=== PATIENT | female | born 1985 | race Caucasian/White ===

== ENCOUNTER 2017-10-16 13:45 | Emergency (ER) | payer OTHER | END 2017-10-16 14:34 | disposition home or self-care (01) | LOC: E/R 13:45 | DX: O99.519 Diseases of the respiratory system complicating pregnancy, unspecified trimester (principal); J06.9 Acute upper respiratory infection, unspecified; J34.89 Other specified disorders of nose and nasal sinuses; Z3A.00 Weeks of gestation of pregnancy not specified | CPT/HCPCS: 99283 ==

== ENCOUNTER 2017-10-18 17:36 | Emergency (ER) | payer OTHER ==
[2017-10-18] MEDS: SOD CHLORIDE 0.9% 1,000 ML IV (21:22)
[2017-10-18] MEDS: ACETAMINOPHEN 325 MG TAB PO (21:47)
[2017-10-18] MEDS: ONDANSETRON 4 MG INJ IV (21:48)
[2017-10-18 22:33] LABS: ADD MAN DIFF? NO
[2017-10-18 22:35] LABS: BASOPHILS % 0.2 % (0.0-2.0); EOSINOPHILS # 0.1 10^3/ul (0.0-0.5); EOSINOPHILS % 1.1 % (0.0-7.0); HEMATOCRIT 34.1 % (37.0-47.0); HEMOGLOBIN 12.1 g/dl (12.0-16.0); LYMPHOCYTES # 0.9 10^3/ul (0.8-2.9); LYMPHOCYTES % 9.9 % (15.0-51.0); MEAN CORPUSCULAR HEMOGLOBIN 30.9 pg (29.0-33.0); MEAN CORPUSCULAR HGB CONC 35.5 g/dl (32.0-37.0); MEAN CORPUSCULAR VOLUME 87.2 fl (82.0-101.0); MEAN PLATELET VOLUME 10.5 fl (7.4-10.4); MONOCYTE # 0.5 10^3/ul (0.3-0.9); MONOCYTES % 5.7 % (0.0-11.0); NEUTROPHIL # 7.5 10^3/ul (1.6-7.5); NEUTROPHILS % 82.7 % (39.0-77.0); PLATELET COUNT 154 10^3/UL (140-415); RED BLOOD COUNT 3.91 10^6/ul (4.20-5.40); RED CELL DISTRIBUTION WIDTH 12.1 % (11.5-14.5)
[2017-10-18 22:35] LABS: WHITE BLOOD COUNT 9.1 10^3/ul (4.8-10.8)
[2017-10-18 22:54] LABS: ALANINE AMINOTRANSFERASE 43 IU/L (13-69); ALBUMIN 4.1 g/dl (3.3-4.9); ALBUMIN/GLOBULIN RATIO 1.17; ALKALINE PHOSPHATASE 64 IU/L (42-121); ANION GAP 18 (8-16); ASPARTATE AMINO TRANSFERASE 33 IU/L (15-46); BILIRUBIN,INDIRECT 0.3 mg/dl (0-1.1); BILIRUBIN,TOTAL 0.3 mg/dl (0.2-1.3); BLOOD UREA NITROGEN 12 mg/dl (7-20); CALCIUM 9.2 mg/dl (8.4-10.2); CARBON DIOXIDE 24 mmol/L (21-31); CHLORIDE 103 mmol/L (97-110); CREATININE 0.63 mg/dl (0.44-1.00); GLUCOSE 100 mg/dl (70-220); POTASSIUM 3.9 mmol/L (3.5-5.1); SODIUM 141 mmol/L (135-144); TOTAL PROTEIN 7.6 g/dl (6.1-8.1)
== END 2017-10-18 23:59 | disposition home or self-care (01) ==
LOC: FTE 17:36
DX: O99.511 Diseases of the respiratory system complicating pregnancy, first trimester (principal); J00 Acute nasopharyngitis [common cold]; Z3A.11 11 weeks gestation of pregnancy
CPT/HCPCS: 76801; 80053; 84702; 85025; 86900; 86901; 96374; 99285-25

== ENCOUNTER 2017-10-20 12:41 | Emergency (ER) | payer OTHER | END 2017-10-20 12:50 | disposition home or self-care (01) | LOC: E/R 12:50 → FTE 12:41 | DX: J06.9 Acute upper respiratory infection, unspecified (principal) | CPT/HCPCS: 99283; Z7502 ==

== ENCOUNTER 2017-10-24 09:14 | Emergency (ER) | payer OTHER ==
[2017-10-24] MEDS: METOCLOPRAMIDE 10 MG INJ IV (10:48)
[2017-10-24 10:52] LABS: ADD MAN DIFF? NO
[2017-10-24 10:54] LABS: BASOPHILS % 0.2 % (0.0-2.0); EOSINOPHILS # 0.1 10^3/ul (0.0-0.5); EOSINOPHILS % 1.4 % (0.0-7.0); HEMATOCRIT 38.3 % (37.0-47.0); HEMOGLOBIN 13.4 g/dl (12.0-16.0); LYMPHOCYTES # 1.6 10^3/ul (0.8-2.9); MEAN CORPUSCULAR HEMOGLOBIN 30.7 pg (29.0-33.0); MEAN CORPUSCULAR VOLUME 87.8 fl (82.0-101.0); MEAN PLATELET VOLUME 9.9 fl (7.4-10.4); MONOCYTE # 0.5 10^3/ul (0.3-0.9); MONOCYTES % 5.6 % (0.0-11.0); NEUTROPHIL # 6.3 10^3/ul (1.6-7.5); NEUTROPHILS % 73.5 % (39.0-77.0); PLATELET COUNT 193 10^3/UL (140-415); RED BLOOD COUNT 4.36 10^6/ul (4.20-5.40); RED CELL DISTRIBUTION WIDTH 11.6 % (11.5-14.5)
[2017-10-24 10:54] LABS: WHITE BLOOD COUNT 8.6 10^3/ul (4.8-10.8)
[2017-10-24] MEDS: ONDANSETRON 4 MG INJ IV (10:55)
[2017-10-24 11:03] LABS: ADD UMIC YES; UR ASCORBIC ACID 40 mg/dL (NEGATIVE); UR BILIRUBIN (Dip) NEGATIVE (NEGATIVE); UR BLOOD (Dip) NEGATIVE (NEGATIVE); UR CLARITY SLIGHTLY CLOUDY (CLEAR); UR COLOR AMBER (YELLOW); UR GLUCOSE (Dip) NEGATIVE (NEGATIVE); UR KETONES (Dip) 2+ mg/dL (NEGATIVE); UR LEUKOCYTE ESTERASE (Dip) 2+ Leu/ul (NEGATIVE); UR MUCUS MODERATE /HPF (NONE SEEN); UR NITRITE (Dip) NEGATIVE (NEGATIVE); UR RBC 2 /HPF (0-5); UR SPECIFIC GRAVITY (Dip) 1.033 (1.003-1.030); UR SQUAMOUS EPITHELIAL CELL MODERATE /HPF (FEW); UR TOTAL PROTEIN (Dip) 2+ mg/dl (NEGATIVE); UR UROBILINOGEN (Dip) 2+ mg/dL (NEGATIVE); UR WBC 14 /HPF (0-5)
[2017-10-24 11:13] LABS: ALANINE AMINOTRANSFERASE 36 IU/L (13-69); ALBUMIN 4.4 g/dl (3.3-4.9); ALKALINE PHOSPHATASE 80 IU/L (42-121); ANION GAP 18 (8-16); ASPARTATE AMINO TRANSFERASE 31 IU/L (15-46); BILIRUBIN,INDIRECT 0.3 mg/dl (0-1.1); BILIRUBIN,TOTAL 0.3 mg/dl (0.2-1.3); BLOOD UREA NITROGEN 11 mg/dl (7-20); CALCIUM 9.7 mg/dl (8.4-10.2); CARBON DIOXIDE 26 mmol/L (21-31); CHLORIDE 104 mmol/L (97-110); CREATININE 0.66 mg/dl (0.44-1.00); GLUCOSE 99 mg/dl (70-220); LIPASE 56 U/L (23-300); POTASSIUM 3.9 mmol/L (3.5-5.1); SODIUM 144 mmol/L (135-144); TOTAL PROTEIN 8.4 g/dl (6.1-8.1)
[2017-10-24] MEDS: CEPHALEXIN 500 MG CAP PO (12:02)
== END 2017-10-24 12:06 | disposition home or self-care (01) ==
LOC: FTE 09:14
DX: O21.9 Vomiting of pregnancy, unspecified (principal); Z3A.11 11 weeks gestation of pregnancy
CPT/HCPCS: 36415; 80053; 81001; 83690; 85025; 96374; 96375; 99284-25

== ENCOUNTER 2017-11-25 22:30 | Emergency (ER) | payer OTHER ==
[2017-11-26] MEDS: SOD CHLORIDE 0.9% 1,000 ML IV (01:34)
[2017-11-26 01:40] LABS: ADD UMIC YES; UR ASCORBIC ACID NEGATIVE (NEGATIVE); UR BACTERIA FEW /HPF (NONE SEEN); UR BILIRUBIN (Dip) NEGATIVE (NEGATIVE); UR BLOOD (Dip) NEGATIVE (NEGATIVE); UR CLARITY CLOUDY (CLEAR); UR COLOR YELLOW (YELLOW); UR GLUCOSE (Dip) NEGATIVE (NEGATIVE); UR KETONES (Dip) 1+ mg/dL (NEGATIVE); UR LEUKOCYTE ESTERASE (Dip) 3+ Leu/ul (NEGATIVE); UR MUCUS FEW /HPF (NONE SEEN); UR NITRITE (Dip) NEGATIVE (NEGATIVE); UR RBC 4 /HPF (0-5); UR SPECIFIC GRAVITY (Dip) 1.016 (1.003-1.030); UR SQUAMOUS EPITHELIAL CELL MODERATE /HPF (FEW); UR TOTAL PROTEIN (Dip) NEGATIVE (NEGATIVE); UR UROBILINOGEN (Dip) 1+ mg/dL (NEGATIVE); UR WBC 41 /HPF (0-5)
[2017-11-26 02:27] LABS: ADD MAN DIFF? NO
[2017-11-26 02:31] LABS: BASOPHILS % 0.5 % (0.0-2.0); EOSINOPHILS # 0.1 10^3/ul (0.0-0.5); EOSINOPHILS % 1.6 % (0.0-7.0); HEMATOCRIT 36.2 % (37.0-47.0); HEMOGLOBIN 12.8 g/dl (12.0-16.0); LYMPHOCYTES # 1.8 10^3/ul (0.8-2.9); LYMPHOCYTES % 23.3 % (15.0-51.0); MEAN CORPUSCULAR HEMOGLOBIN 31.4 pg (29.0-33.0); MEAN CORPUSCULAR HGB CONC 35.4 g/dl (32.0-37.0); MEAN CORPUSCULAR VOLUME 88.9 fl (82.0-101.0); MEAN PLATELET VOLUME 11.2 fl (7.4-10.4); MONOCYTE # 0.5 10^3/ul (0.3-0.9); MONOCYTES % 6.2 % (0.0-11.0); NEUTROPHIL # 5.3 10^3/ul (1.6-7.5); PLATELET COUNT 177 10^3/UL (140-415); RED BLOOD COUNT 4.07 10^6/ul (4.20-5.40); RED CELL DISTRIBUTION WIDTH 12.7 % (11.5-14.5)
[2017-11-26 02:31] LABS: WHITE BLOOD COUNT 7.7 10^3/ul (4.8-10.8)
[2017-11-26 02:50] LABS: ALANINE AMINOTRANSFERASE 43 IU/L (13-69); ALBUMIN 4.1 g/dl (3.3-4.9); ALBUMIN/GLOBULIN RATIO 1.13; ALKALINE PHOSPHATASE 57 IU/L (42-121); ANION GAP 16 (8-16); ASPARTATE AMINO TRANSFERASE 36 IU/L (15-46); BILIRUBIN,INDIRECT 0.1 mg/dl (0-1.1); BILIRUBIN,TOTAL 0.1 mg/dl (0.2-1.3); BLOOD UREA NITROGEN 9 mg/dl (7-20); CALCIUM 9.4 mg/dl (8.4-10.2); CARBON DIOXIDE 23 mmol/L (21-31); CHLORIDE 106 mmol/L (97-110); CREATININE 0.64 mg/dl (0.44-1.00); GLUCOSE 97 mg/dl (70-220); POTASSIUM 3.8 mmol/L (3.5-5.1); SODIUM 141 mmol/L (135-144); TOTAL PROTEIN 7.7 g/dl (6.1-8.1)
[2017-11-26] MEDS: CEFTRIAXONE 1 GM/50 ML (PMX) 50 ML IVPB (03:25)
== END 2017-11-26 04:30 | disposition home or self-care (01) ==
LOC: FTE 22:30
DX: O02.1 Missed abortion (principal); O23.02 Infections of kidney in pregnancy, second trimester; Z3A.15 15 weeks gestation of pregnancy
CPT/HCPCS: 36415; 76805; 80053; 81001; 84702; 85025; 96374; 99285-25

== ENCOUNTER 2017-11-26 11:04 | Inpatient (IN) | payer OTHER ==
[2017-11-26] MEDS ORDERED: MISOPROSTOL 200 MCG TAB PR (13:00)
[2017-11-26] MEDS ORDERED: LIDOCAINE 1% (MPF) 30 ML INJ INJ (13:00)
[2017-11-26] MEDS ORDERED: METHYLERGONOVINE 0.2 MG INJ IM (13:00)
[2017-11-26] MEDS ORDERED: CARBOPROST 250 MCG INJ IM (13:00)
[2017-11-26] MEDS ORDERED: BUTORPHANOL 2 MG INJ IV ×2 (13:00)
[2017-11-26] MEDS ORDERED: IBUPROFEN 600 MG TAB PO (13:00)
[2017-11-26] MEDS ORDERED: OXYTOCIN 30 UNITS/LR 500 ML IV ×3 (13:00)
[2017-11-26] MEDS ORDERED: HYDROCODONE/APAP (5/325) TAB PO (13:00)
[2017-11-26] MEDS ORDERED: AMPICILLIN 2 GM/NS (PMX) 100 ML IV (13:00)
[2017-11-26 14:18] LABS: ADD MAN DIFF? NO
[2017-11-26 14:22] LABS: WHITE BLOOD COUNT 8.4 10^3/ul (4.8-10.8)
[2017-11-26 14:22] LABS: BASOPHILS % 0.4 % (0.0-2.0); EOSINOPHILS # 0.1 10^3/ul (0.0-0.5); EOSINOPHILS % 0.7 % (0.0-7.0); HEMATOCRIT 36.1 % (37.0-47.0); HEMOGLOBIN 12.5 g/dl (12.0-16.0); LYMPHOCYTES # 1.6 10^3/ul (0.8-2.9); LYMPHOCYTES % 18.5 % (15.0-51.0); MEAN CORPUSCULAR HEMOGLOBIN 31.2 pg (29.0-33.0); MEAN CORPUSCULAR HGB CONC 34.6 g/dl (32.0-37.0); MEAN PLATELET VOLUME 10.9 fl (7.4-10.4); MONOCYTE # 0.6 10^3/ul (0.3-0.9); MONOCYTES % 6.7 % (0.0-11.0); NEUTROPHIL # 6.2 10^3/ul (1.6-7.5); NEUTROPHILS % 73.2 % (39.0-77.0); PLATELET COUNT 180 10^3/UL (140-415); RED BLOOD COUNT 4.01 10^6/ul (4.20-5.40); RED CELL DISTRIBUTION WIDTH 12.6 % (11.5-14.5)
[2017-11-26 14:42] LABS: INR 1.12; PROTIME 14.6 Sec (11.9-14.9); PT RATIO 1.1
[2017-11-26 14:43] LABS: PARTIAL THROMBOPLASTIN TIME 29.9 Sec (25.0-35.0)
[2017-11-26 15:09] LABS: HEPATITIS B SURFACE ANTIGEN NEGATIVE (NEGATIVE)
[2017-11-26] MEDS: DINOPROSTONE 20 MG VAG SUPP VAG ×2 (15:10→20:34)
[2017-11-26] MEDS: LACTATED RINGER'S 1,000 ML IV ×3 (15:44→22:31)
[2017-11-26] MEDS: ONDANSETRON 4 MG INJ IV (15:47)
[2017-11-26] MEDS ORDERED: AMPICILLIN 1 GM/NS (PMX) 50 ML IV (17:00)
[2017-11-26] MEDS ORDERED: FENTAnyl 2MCG/ML-ROPIV 0.2% 100 ML (19:12)
[2017-11-26] MEDS ORDERED: DIPHENHYDRAMINE 50 MG INJ IV (20:00)
[2017-11-26] MEDS ORDERED: NALOXONE (0.4 MG/ML) INJ IV (20:00)
[2017-11-26] MEDS ORDERED: ONDANSETRON 4 MG INJ IV (20:00)
[2017-11-26] MEDS ORDERED: EPHEDrine SULFATE 50 MG/5 ML SYG IV (20:00)
[2017-11-26] MEDS ORDERED: FENTAnyl 2MCG/ML-ROPIV 0.2% 100 ML BAG EPI (20:00)
[2017-11-26 22:02] LABS: ADD UMIC YES; UR ASCORBIC ACID NEGATIVE (NEGATIVE); UR BILIRUBIN (Dip) NEGATIVE (NEGATIVE); UR BLOOD (Dip) NEGATIVE (NEGATIVE); UR CLARITY CLEAR (CLEAR); UR COLOR YELLOW (YELLOW); UR GLUCOSE (Dip) NEGATIVE (NEGATIVE); UR KETONES (Dip) 2+ mg/dL (NEGATIVE); UR LEUKOCYTE ESTERASE (Dip) NEGATIVE Leu/ul (NEGATIVE); UR MUCUS FEW /HPF (NONE SEEN); UR NITRITE (Dip) NEGATIVE (NEGATIVE); UR RBC 4 /HPF (0-5); UR SPECIFIC GRAVITY (Dip) 1.028 (1.003-1.030); UR SQUAMOUS EPITHELIAL CELL FEW /HPF (FEW); UR TOTAL PROTEIN (Dip) 1+ mg/dl (NEGATIVE); UR UROBILINOGEN (Dip) 1+ mg/dL (NEGATIVE); UR WBC 1 /HPF (0-5)
[2017-11-26 22:18] LABS: RAPID PLASMA REAGIN NONREACTIVE (NR)
[2017-11-27] MEDS: DINOPROSTONE 20 MG VAG SUPP VAG (01:00)
[2017-11-27] MEDS: MISOPROSTOL 25 MCG CAPSULE PO (03:11)
[2017-11-27] MEDS ORDERED: LIDOCAINE 1.5%/EPI MPF (SDV) 30 ML VIAL (04:42)
[2017-11-27] MEDS ORDERED: CEFAZOLIN 1 GM INJ (04:48)
[2017-11-27] MEDS ORDERED: MEPERIDINE 25 MG INJ IV (06:30)
[2017-11-27] MEDS ORDERED: OXYCODONE/ACETAMINOPHEN (5/325) TAB PO ×2 (06:30)
[2017-11-27] MEDS ORDERED: MIDAZOLAM 1 MG/ML 2 ML INJ IV (06:30)
[2017-11-27] MEDS ORDERED: FENTAnyl 50 MCG/ML VIAL IV ×3 (06:30)
[2017-11-27] MEDS ORDERED: ONDANSETRON 4 MG INJ IV (06:30)
[2017-11-27] MEDS ORDERED: DIPHENHYDRAMINE 50 MG INJ IV (06:30)
[2017-11-27] MEDS ORDERED: LANOLIN 7 GM TUBE TOP (08:30)
[2017-11-27] MEDS ORDERED: OXYCODONE/ASPIRIN (4.88/325) TAB PO ×2 (08:30)
[2017-11-27] MEDS ORDERED: ZOLPIDEM 5 MG TAB PO (08:30)
[2017-11-27] MEDS ORDERED: BENZOCAINE 20% 56 ML SPRAY TOP (08:30)
[2017-11-27] MEDS ORDERED: MISOPROSTOL 200 MCG TAB PR (08:30)
[2017-11-27] MEDS ORDERED: OXYTOCIN 30 UNITS/LR 500 ML IV (08:30)
[2017-11-27] MEDS ORDERED: CARBOPROST 250 MCG INJ IM (08:30)
[2017-11-27] MEDS ORDERED: METHYLERGONOVINE 0.2 MG INJ IM (08:30)
[2017-11-27] MEDS: WITCH HAZEL/GLYCERIN PAD PR (08:51)
[2017-11-27] MEDS: SENNA/DOCUSATE NA (8.6MG/50MG) TAB PO (08:51)
[2017-11-27] MEDS: IBUPROFEN 600 MG TAB PO ×2 (11:33→17:32)
[2017-11-27] MEDS: CEPHALEXIN 500 MG CAP PO (18:46)
[2017-11-27] MEDS: DOXYCYCLINE 100 MG TAB PO ×3 (22:00→23:00)
[2017-11-28] MEDS: CEPHALEXIN 500 MG CAP PO ×2 (00:44→06:04)
[2017-11-28 02:48] LABS: RHOGAM PROFILE 1 1
[2017-11-28 08:05] LABS: ADD MAN DIFF? NO
[2017-11-28 08:09] LABS: BASOPHILS % 0.3 % (0.0-2.0); EOSINOPHILS # 0.1 10^3/ul (0.0-0.5); EOSINOPHILS % 1.6 % (0.0-7.0); HEMOGLOBIN 8.4 g/dl (12.0-16.0); LYMPHOCYTES % 32.4 % (15.0-51.0); MEAN CORPUSCULAR HEMOGLOBIN 31.8 pg (29.0-33.0); MEAN CORPUSCULAR VOLUME 90.9 fl (82.0-101.0); MEAN PLATELET VOLUME 10.9 fl (7.4-10.4); MONOCYTE # 0.4 10^3/ul (0.3-0.9); MONOCYTES % 6.7 % (0.0-11.0); NEUTROPHIL # 3.6 10^3/ul (1.6-7.5); NEUTROPHILS % 58.7 % (39.0-77.0); PLATELET COUNT 150 10^3/UL (140-415); RED BLOOD COUNT 2.64 10^6/ul (4.20-5.40); RED CELL DISTRIBUTION WIDTH 13.1 % (11.5-14.5)
[2017-11-28 08:09] LABS: WHITE BLOOD COUNT 6.1 10^3/ul (4.8-10.8)
[2017-11-28] MEDS ORDERED: FERROUS GLUCONATE (EC) 325 MG TAB PO (11:00)
[2017-11-29] MEDS ORDERED: DIPHTH/TET/ACEL PERTUSS (ADULT) 0.5 ML VIAL IM* (09:00)
== END 2017-11-28 09:58 | disposition home or self-care (01) | DRG 770 ==
LOC: L-D 11:04 → PP1 11-27 13:29
PROVIDERS: Obstetrics & Gynecology
PROC: 10D17ZZ Extraction of Products of Conception, Retained, Via Natural or Artificial Opening (ICD-10-PCS; principal; 2017-11-26)
DX: O02.1 Missed abortion (principal)
CPT/HCPCS: 76815; 81001; 85025; 85610; 85730; 86592; 86850; 86885; 86900; 86901; 87086; 87340; 88307

== ENCOUNTER 2018-04-08 08:33 | Emergency (ER) | payer OTHER ==
[2018-04-08 09:06] LABS: ADD MAN DIFF? NO
[2018-04-08 09:09] LABS: BASOPHILS % 0.4 % (0.0-2.0); EOSINOPHILS # 0.2 10^3/ul (0.0-0.5); EOSINOPHILS % 2.6 % (0.0-7.0); HEMATOCRIT 39.1 % (37.0-47.0); HEMOGLOBIN 12.7 g/dl (12.0-16.0); LYMPHOCYTES # 1.8 10^3/ul (0.8-2.9); LYMPHOCYTES % 22.7 % (15.0-51.0); MEAN CORPUSCULAR HEMOGLOBIN 26.7 pg (29.0-33.0); MEAN CORPUSCULAR HGB CONC 32.5 g/dl (32.0-37.0); MEAN CORPUSCULAR VOLUME 82.3 fl (82.0-101.0); MEAN PLATELET VOLUME 10.1 fl (7.4-10.4); MONOCYTE # 0.4 10^3/ul (0.3-0.9); MONOCYTES % 5.5 % (0.0-11.0); NEUTROPHIL # 5.5 10^3/ul (1.6-7.5); NEUTROPHILS % 68.5 % (39.0-77.0); PLATELET COUNT 196 10^3/UL (140-415); RED BLOOD COUNT 4.75 10^6/ul (4.20-5.40); RED CELL DISTRIBUTION WIDTH 14.9 % (11.5-14.5)
[2018-04-08 09:19] LABS: ADD UMIC YES; UR ASCORBIC ACID NEGATIVE (NEGATIVE); UR BACTERIA FEW /HPF (NONE SEEN); UR BILIRUBIN (Dip) NEGATIVE (NEGATIVE); UR BLOOD (Dip) NEGATIVE (NEGATIVE); UR CLARITY SLIGHTLY CLOUDY (CLEAR); UR COLOR YELLOW (YELLOW); UR GLUCOSE (Dip) NEGATIVE (NEGATIVE); UR KETONES (Dip) NEGATIVE (NEGATIVE); UR LEUKOCYTE ESTERASE (Dip) 2+ Leu/ul (NEGATIVE); UR MUCUS FEW /HPF (NONE SEEN); UR NITRITE (Dip) NEGATIVE (NEGATIVE); UR RBC 1 /HPF (0-5); UR SPECIFIC GRAVITY (Dip) 1.018 (1.003-1.030); UR SQUAMOUS EPITHELIAL CELL FEW /HPF (FEW); UR TOTAL PROTEIN (Dip) NEGATIVE (NEGATIVE); UR UROBILINOGEN (Dip) NEGATIVE (NEGATIVE); UR WBC 13 /HPF (0-5)
[2018-04-08 09:33] LABS: ALANINE AMINOTRANSFERASE 25 IU/L (13-69); ALBUMIN 4.2 g/dl (3.3-4.9); ALKALINE PHOSPHATASE 54 IU/L (42-121); ANION GAP 13 (8-16); ASPARTATE AMINO TRANSFERASE 28 IU/L (15-46); BILIRUBIN,INDIRECT 0.4 mg/dl (0-1.1); BILIRUBIN,TOTAL 0.4 mg/dl (0.2-1.3); BLOOD UREA NITROGEN 11 mg/dl (7-20); CALCIUM 9.4 mg/dl (8.4-10.2); CARBON DIOXIDE 25 mmol/L (21-31); CHLORIDE 106 mmol/L (97-110); GLUCOSE 108 mg/dl (70-220); LIPASE 97 U/L (23-300); POTASSIUM 4.6 mmol/L (3.5-5.1); SODIUM 139 mmol/L (135-144); TOTAL PROTEIN 7.7 g/dl (6.1-8.1)
== END 2018-04-08 09:52 | disposition home or self-care (01) ==
LOC: FTE 08:33
DX: K80.50 Calculus of bile duct without cholangitis or cholecystitis without obstruction (principal)
CPT/HCPCS: 36415; 76705; 80053; 81001; 81025; 83690; 85025; 99284-25

== ENCOUNTER 2018-08-09 16:55 | Emergency (ER) | payer OTHER ==
[2018-08-09 17:31] LABS: URINE BLOOD (Dip) POC 3+ (NEGATIVE); URINE GLUCOSE (Dip) POC Negative (NEGATIVE); URINE KETONES (Dip) POC Trace (NEGATIVE); URINE LEUKOCYTE EST (Dip) POC Trace (NEGATIVE); URINE NITRITE (Dip) POC Negative (NEGATIVE); URINE TOTAL PROTEIN POC 2+ (NEGATIVE)
[2018-08-09] MEDS: KETOROLAC 60 MG INJ IM (17:44)
[2018-08-09] MEDS: ACETAMINOPHEN 500 MG TAB PO (17:48)
== END 2018-08-09 18:03 | disposition home or self-care (01) ==
LOC: FTE 16:55
DX: M54.5 Low back pain (principal)
CPT/HCPCS: 81003; 81025; 99283

== ENCOUNTER 2018-09-23 05:40 | Emergency (ER) | payer OTHER ==
[2018-09-23] MEDS: LIDOCAINE/MYLANTA 40 ML BTL PO (06:36)
[2018-09-23] MEDS: ONDANSETRON (ODT) 4 MG TAB ODT (06:37)
[2018-09-23] MEDS: HYDROCODONE/APAP (5/325) TAB PO (06:37)
[2018-09-23] MEDS: FAMOTIDINE 20 MG TAB PO (06:37)
== END 2018-09-23 07:46 | disposition home or self-care (01) ==
LOC: FTE 07:46
DX: R10.13 Epigastric pain (principal); R11.0 Nausea
CPT/HCPCS: 81025; 99283